=== PATIENT | female | born 1960 | race African-American/Black ===

== ENCOUNTER 2022-07-16 11:18 | Emergency (ER) | payer MEDICAID ==
[~2022-07-16] VITALS: Ht 157.5 cm; Wt 63.5 kg
[2022-07-16 11:24] VITALS: BP 150/96
--- NOTE | 2022-07-16 11:32 | NUR ---
PATIENT AMBULATED TO BED 5
--- NOTE | 2022-07-16 11:45 | NUR ---
DR. MUÑOZ EVALUATING PATIENT AT BEDSIDE.
--- NOTE | 2022-07-16 11:54 | NUR ---
PT CO RIGHT SHOULDER PAIN X1 MONTH, DENIES INJURY OR TRAUMA
[2022-07-16] MEDS ORDERED: NAPR-1704 PO (12:14)
[2022-07-16] MEDS ORDERED: ACET-8905 PO (12:14)
--- NOTE | 2022-07-16 12:15 | NUR ---
Patient discharged with v/s stable. Written and verbal after care instructions given and explained. Patient verbalized understanding. Ambulatory with steady gait. All questions addressed prior to discharge. Advised to follow up with PMD.
== END 2022-07-16 12:15 | disposition home or self-care (01) ==
LOC: MED 11:18
DX: G89.29 Other chronic pain (principal); M25.511 Pain in right shoulder; F17.210 Nicotine dependence, cigarettes, uncomplicated; Z90.49 Acquired absence of other specified parts of digestive tract; Z79.1 Long term (current) use of non-steroidal anti-inflammatories (NSAID); Z79.891 Long term (current) use of opiate analgesic
CPT/HCPCS: 99283

== ENCOUNTER 2023-02-09 02:30 | Emergency (ER) | payer MEDICAID ==
[~2023-02-09] VITALS: Ht 157.5 cm; Wt 68.9 kg
[~2023-02-09 02:30] MED LIST: ACET-8905 PO; NAPR-1704 PO
[2023-02-09 02:35] VITALS: BP 177/82; PULSE 73; RESP 17; TEMP 97.8; O2SAT 96
[2023-02-09 03:31] LABS: BASOPHILS # (AUTO) 0.1 K/uL (0.00-0.22); BASOPHILS % (AUTO) 0.5 % (0.0-2.0); EOSINOPHILS # (AUTO) 0.2 K/uL (0-0.4); HEMATOCRIT 36.8 % (36-48); HEMOGLOBIN 12.3 g/dL (12.0-16.0); LYMPHOCYTES # (AUTO) 2.4 K/uL (2.5-16.5); LYMPHOCYTES % (AUTO) 24.7 % (20.5-51.1); MEAN CORPUSCULAR HEMOGLOBIN 27 pg (27-31); MEAN CORPUSCULAR HGB CONC 34 g/dL (33-37); MEAN CORPUSCULAR VOLUME 80.3 fL (80-94); MONOCYTES # (AUTO) 0.5 K/uL (0.8-1.0); MONOCYTES % (AUTO) 4.7 % (1.7-9.3); NEUTROPHILS # (AUTO) 6.6 K/uL (1.8-7.7); NEUTROPHILS % (AUTO) 68.1 % (42.2-75.2); PLATELET COUNT (AUTO) 336 K/uL (140-450); RED BLOOD CELL COUNT(AUTO) 4.58 MIL/uL (4.20-5.40); WHITE BLOOD COUNT (AUTO) 9.7 K/uL (4.8-10.8)
[2023-02-09 03:38] LABS: APPEARANCE,URINE CLEAR (CLEAR); BILIRUBIN,URINE NEGATIVE (NEGATIVE); BLOOD, URINE NEGATIVE (NEGATIVE); COLOR,URINE YELLOW (YELLOW); LEUKOCYTE ESTERASE ,URINE NEGATIVE (NEGATIVE); NITRITE, URINE NEGATIVE (NEGATIVE); PROTEIN,URINE NEGATIVE (NEGATIVE); UGLUCOSE NEGATIVE (NEGATIVE); UROBILINOGEN,URINE 0.2 EU/dL (0.2 - 1)
[2023-02-09 03:48] VITALS: TEMP 97.8
[2023-02-09 03:53] LABS: ALANINE AMINOTRANSFERASE 16 U/L (12-78); ALBUMIN 3.7 g/dL (3.4-5.0); ALKALINE PHOSPHATASE 89 U/L (50-136); ANION GAP 13.7 (8-16); ASPARTATE AMINOTRANSFERASE 13 U/L (15-37); CALCIUM 8.6 mg/dL (8.5-10.1); CARBON DIOXIDE 23.8 mmol/L (21-32); CHLORIDE 102 mmol/L (98-107); CREATININE 0.9 mg/dL (0.6-1.3); GFR ARICAN-AMERICAN 82 mL/min (>90); GFR NON ARICAN-AMERICAN 67 mL/min (>90); GLUCOSE 119 mg/dL (74-106); POTASSIUM 3.5 mmol/L (3.5-5.1); SODIUM SERUM 136 mmol/L (136-145); TOTAL BILIRUBIN 0.3 mg/dL (0.0-1.0); TOTAL PROTEIN, SERUM 7.2 g/dL (6.4-8.2); UREA NITROGEN, BLOOD 9 mg/dL (7-18)
[2023-02-09 05:00] VITALS: O2SAT 98
[2023-02-09] MEDS ORDERED: FLONAS NS (05:04)
[2023-02-09 05:30] VITALS: BP 165/70; PULSE 83; RESP 14
== END 2023-02-09 05:30 | disposition home or self-care (01) ==
LOC: MED 02:30
DX: J06.9 Acute upper respiratory infection, unspecified (principal); I10 Essential (primary) hypertension; R53.1 Weakness; R11.10 Vomiting, unspecified; R42 Dizziness and giddiness; R53.83 Other fatigue; Z79.899 Other long term (current) drug therapy; Z20.822 Contact with and (suspected) exposure to COVID-19
CPT/HCPCS: 36415; 70450; 71045; 80053; 81003; 84484; 85025; 87426; 93005; 99285; Q0092

== ENCOUNTER 2023-04-20 09:16 | Emergency (ER) | payer MEDICAID ==
[~2023-04-20] VITALS: Ht 157.5 cm; Wt 64.4 kg
[~2023-04-20 09:16] MED LIST changes: +FLONAS NS
[2023-04-20 09:59] VITALS: BP 153/117; PULSE 81; RESP 18; TEMP 98.1; O2SAT 96
[2023-04-20 11:03] LABS: FLU A ANTIGEN negative (NEGATIVE); FLU B ANTIGEN negative (NEGATIVE)
[2023-04-20] MEDS ORDERED: PROM118S5 PO ×2 (11:33→11:42)
[2023-04-20] MEDS ORDERED: ACET-2619 PO ×2 (11:33→11:42)
[2023-04-20] MEDS ORDERED: IBUP-2213 PO ×2 (11:33→11:42)
[2023-04-20 11:41] VITALS: BP 145/80; PULSE 81; RESP 15; TEMP 98.1; O2SAT 97
== END 2023-04-20 11:41 | disposition home or self-care (01) ==
LOC: MED 09:16
DX: J06.9 Acute upper respiratory infection, unspecified (principal); Z20.822 Contact with and (suspected) exposure to COVID-19; Z79.899 Other long term (current) drug therapy
CPT/HCPCS: 99283